=== PATIENT | female | born 1985 | race Caucasian/White ===

== ENCOUNTER 2017-01-01 07:02 | Inpatient (IN) | payer OTHER ==
[~2017-01-01] VITALS: Ht 170.2 cm; Wt 120.3 kg
--- NOTE | ~2017-01-01 | FD ---
ADMIT: 01/01/2017 RM/LOC: 220 [facility] MR#: [id number] [address] [address] RYLIE FERNANDEZ [facility] [place] [address] Final Diagnosis SEX: F AGE: 31 : 1985 ADMISSION DATE: 01/01/2017 DISCHARGE DATE: 01/03/2017 FINAL DIAGNOSIS: Term . PROCEDURES: Vaginal delivery. Thai Schwartz MD/ tavo JOB #: [id number] CC: Thai Schwartz MD, Attending Physician David Rendon, Family Physician
[2017-01-04] MEDS ORDERED: MOTRIN-DPS800 MG PO (18:18)
[2017-01-04] MEDS ORDERED: TYLENOL #3 DPS1 TAB PO (18:18)
[2017-01-04] MEDS ORDERED: NIPPLECREAM TP (18:18)
--- NOTE | 2017-02-04 07:31 | OR ---
ADMIT: 01/01/2017 RM/LOC: 220 [facility] MR#: [id number] [id number] [place], [place] [address] RYLIE FERNANDEZ [place] [address] Operative/Delivery Room Report SEX: F AGE: 31 : 1985 SURGERY DATE: 01/01/2017 SURGEON: Thai Schwartz MD PRINCIPAL DIAGNOSIS: Term intrauterine . POSTOPERATIVE DIAGNOSIS: Term intrauterine . PROCEDURE: Spontaneous vaginal delivery. INDICATION: The patient is a 31-year-old female, 9, para 3-0- 5-3, who presented at 40 and 4/7th weeks' estimated gestational age for elective induction of labor, progressed through labor in a satisfactory fashion to complete. ANESTHESIA: Epidural. ESTIMATED BLOOD LOSS: 300 mL. COMPLICATIONS: None. FINDINGS: Viable male , 9 pounds 6 ounces with scores of 7 at 1 and 9 at 5 minutes, delivered in left occiput anterior presentation. DESCRIPTION OF PROCEDURE: When the patient was noted to be complete and pushing, she was prepped and draped in the usual fashion in dorsal lithotomy position. 's head was allowed to deliver over an intact perineum. After restitution of the head, the mouth and nose were cleared. Neck was examined for nuchal cord and none was noted. The anterior followed by the posterior shoulders were delivered, followed by expulsion of the remainder of the . Cord was then clamped x2, cut, and the infant was placed on the maternal stomach in the care of nursing staff. Placenta was then delivered intact with normal appearance. The uterine cervix was then visualized and noted to be without lacerations or tears. Attention was then turned to the perineum, where she was noted to have a small second-degree midline laceration. This was repaired in standard fashion utilizing a single length of 2-0 Vicryl using a running locked stitch to close the vaginal mucosa, a running stitch to close the deep perineal body, and a subcuticular stitch to close the skin. The patient tolerated the procedure well and was taken to the recovery room in stable condition. All sponge, instrument, and needle counts were correct. Thai Schwartz MD/ erika JOB #: [id number] CC: Thai Schwartz, Attending Physician ADMIT: 01/01/2017 RM/LOC: 220 [facility] MR#: [id number] [address] [address] RYLIE FERNANDEZ [address] [place] [address] Operative/Delivery Room Report SEX: F AGE: 31 : 1985 David Rendon, Family Physician
== END 2017-01-03 11:00 | disposition home or self-care (01) | DRG 775 ==
LOC: BC 07:02 → 2LDRP 07:02
PROVIDERS: ADMIT Obstetrics & Gynecology
PROC: 0KQM0ZZ Repair Perineum Muscle, Open Approach (ICD-10-PCS; principal; 2017-01-01)
PROC: 10E0XZZ Delivery of Products of Conception, External Approach (ICD-10-PCS; principal; 2017-01-01)
PROC: 10907ZC Drainage of Amniotic Fluid, Therapeutic from Products of Conception, Via Natural or Artificial Opening (ICD-10-PCS; principal; 2017-01-01)
DX: O48.0 Post-term pregnancy (principal); O70.1 Second degree perineal laceration during delivery; Z3A.40 40 weeks gestation of pregnancy; Z37.0 Single live birth